=== PATIENT | female | born 1950 | race Caucasian/White ===

== ENCOUNTER 2020-12-16 21:36 | Observation (INO) ==
[2020-12-16 22:53] LABS: INR 13.4; Prothrombin Time 143.6 Seconds (9.4-12.1)
[2020-12-16 23:11] LABS: Basophils # 0.1 K/mcL (0.0-0.2); Basophils % 1.2 %; Eosinophils # 0.1 K/mcL (0.0-0.6); Eosinophils % 2.7 %; Hematocrit 38.6 % (35.3-44.9); Hemoglobin 12.7 g/dL (11.5-15.4); Immature Granulocytes % 0.2 % (0-4); Lymphocytes # 0.8 K/mcL (0.6-4.6); Lymphocytes % 17.2 %; Mean Corpuscular HGB Conc 32.9 g/dL (31.6-35.5); Mean Corpuscular Hemoglobin 28.8 pg (28.0-33.3); Mean Corpuscular Volume 87.5 fL (83.0-100.0); Mean Platelet Volume 9.7 fL (9.4-12.4); Monocytes # 0.4 K/mcL (0.0-1.3); Monocytes % 8.6 %; Neutrophils # 3.4 K/mcL (1.6-8.9); Platelet Count 179 K/mcL (140-400); Red Blood Count 4.41 M/mcL (3.82-4.97); Red Cell Distribution Width 13.8 % (11.5-14.5); Segmented Neutrophils % 70.1 %; White Blood Count 4.9 K/mcL (4.3-11.1)
[2020-12-16] MEDS ORDERED: Ondansetron 4 MG/2 ML VIAL IVP ONE (23:55)
[2020-12-16] MEDS ORDERED: *HR* LORazepam 2 MG/ML VIAL IVP ONE (23:55)
[2020-12-16] MEDS ORDERED: Morphine Sulfate 2 MG/ML SYRINGE IVP ONE (23:55)
[2020-12-17] MEDS ORDERED: Ondansetron ODT 4 MG TAB.RAPDIS SL PRN ×2 (00:10→01:05)
[2020-12-17] MEDS ORDERED: Naloxone 0.4 MG/ML INJ IVP PRN ×4 (00:10→01:05)
[2020-12-17] MEDS ORDERED: 0.9 % Sodium Chloride 1,000 ML IVC SCH ×2 (00:15→01:05)
[2020-12-17 05:51] LABS: Basophils % 0.8 %; Eosinophils # 0.1 K/mcL (0.0-0.6); Eosinophils % 1.5 %; Hematocrit 33.7 % (35.3-44.9); Immature Granulocytes % 0.6 % (0-4); Lymphocytes # 0.6 K/mcL (0.6-4.6); Lymphocytes % 12.2 %; Mean Corpuscular HGB Conc 32.6 g/dL (31.6-35.5); Mean Corpuscular Hemoglobin 28.5 pg (28.0-33.3); Mean Corpuscular Volume 87.3 fL (83.0-100.0); Mean Platelet Volume 9.4 fL (9.4-12.4); Monocytes # 0.5 K/mcL (0.0-1.3); Monocytes % 9.1 %; Platelet Count 138 K/mcL (140-400); Red Blood Count 3.86 M/mcL (3.82-4.97); Red Cell Distribution Width 13.8 % (11.5-14.5); Segmented Neutrophils % 75.8 %; White Blood Count 5.3 K/mcL (4.3-11.1)
[2020-12-17 05:54] LABS: INR 3.3
[2020-12-17 05:58] LABS: Prothrombin Time 36.8 Seconds (9.4-12.1)
[2020-12-17 06:08] LABS: BUN/Creatinine Ratio 12 (6-26); Blood Urea Nitrogen 12 mg/dL (8-23); Calcium 8.3 mg/dL (8.6-10.3); Carbon Dioxide 28 mEq/L (23-29); Chloride 107 mEq/L (98-107); Glucose 104 mg/dL (70-105); Osmolality,Calculated 290 (280-300); Potassium 3.9 mEq/L (3.5-5.1); Sodium 140 mEq/L (136-145); eGFR For African Americans > 60 (> 60); eGFR For Non-African Americans 54 (> 60)
[2020-12-17] MEDS: *HR* Amiodarone 200 MG TABLET PO SCH (09:42)
[2020-12-17] MEDS: Losartan/HCTZ 50-12.5 TABLET PO SCH (09:42)
[2020-12-18 05:48] LABS: Basophils # 0.1 K/mcL (0.0-0.2); Basophils % 1.1 %; Eosinophils # 0.2 K/mcL (0.0-0.6); Eosinophils % 4.2 %; Hematocrit 33.7 % (35.3-44.9); Immature Granulocytes % 0.4 % (0-4); Lymphocytes # 0.9 K/mcL (0.6-4.6); Lymphocytes % 19.6 %; Mean Corpuscular HGB Conc 32.6 g/dL (31.6-35.5); Mean Corpuscular Hemoglobin 29.1 pg (28.0-33.3); Mean Corpuscular Volume 89.2 fL (83.0-100.0); Mean Platelet Volume 9.7 fL (9.4-12.4); Monocytes # 0.4 K/mcL (0.0-1.3); Monocytes % 8.7 %; Platelet Count 139 K/mcL (140-400); Red Blood Count 3.78 M/mcL (3.82-4.97); Red Cell Distribution Width 13.8 % (11.5-14.5); White Blood Count 4.5 K/mcL (4.3-11.1)
[2020-12-18 05:53] LABS: INR 1.6; Prothrombin Time 18.1 Seconds (9.4-12.1)
[2020-12-18 06:04] LABS: Calcium 8.4 mg/dL (8.6-10.3); Potassium 3.4 mEq/L (3.5-5.1)
[2020-12-18 07:39] VITALS: O2SAT 92
[2020-12-18] MEDS: *HR* Amiodarone 200 MG TABLET PO SCH (09:34)
[2020-12-18] MEDS: Losartan/HCTZ 50-12.5 TABLET PO SCH (09:35)
[2020-12-18 11:59] VITALS: BP 156/77; PULSE 56; RESP 18; TEMP 98.3
== END 2020-12-18 15:20 | disposition home or self-care (01) ==
LOC: EMEROOGRE 21:36 → INPGRE 21:36
PROVIDERS: ADMIT Family Medicine; ATTEND Family Medicine